=== PATIENT | female | born 1980 | race Caucasian/White ===

== ENCOUNTER → 2020-01-02 14:43 | Outpatient (BNVA) | payer OTHER, SELFPAY | PROVIDERS: Family Provider Family Medicine; PCP Family Medicine; Visit Provider Emergency Medicine | DX: N39.0 Urinary tract infection, site not specified (principal); R31.9 Hematuria, unspecified | CPT/HCPCS: 81000 ==

== ENCOUNTER → 2020-05-27 16:35 | Outpatient (BNVA) | payer OTHER, SELFPAY | PROVIDERS: Family Provider Family Medicine; PCP Family Medicine; Visit Provider Emergency Medicine | DX: Z03.818 Encounter for observation for suspected exposure to other biological agents ruled out (principal) | CPT/HCPCS: 87635 ==

== ENCOUNTER → 2021-11-22 09:32 | Outpatient (BNVA) | payer OTHER, SELFPAY | PROVIDERS: Family Provider Family Medicine; PCP Nurse Practitioner Family; Visit Provider Emergency Medicine | DX: J02.9 Acute pharyngitis, unspecified (principal); J01.00 Acute maxillary sinusitis, unspecified | CPT/HCPCS: 87071; 87880 ==

== ENCOUNTER → 2021-12-26 17:15 | Outpatient (BNVA) | payer OTHER, SELFPAY | PROVIDERS: Family Provider Family Medicine; PCP Nurse Practitioner Family; Visit Provider Nurse Practitioner Family | DX: M54.16 Radiculopathy, lumbar region (principal); M51.26 Other intervertebral disc displacement, lumbar region | CPT/HCPCS: 72100 ==

== ENCOUNTER → 2022-01-24 16:30 | Outpatient (BNVA) | payer OTHER, MEDICAID, SELFPAY | PROVIDERS: Family Provider Family Medicine; PCP Nurse Practitioner Family; Visit Provider Emergency Medicine | DX: Z87.891 Personal history of nicotine dependence (principal); E66.9 Obesity, unspecified; I10 Essential (primary) hypertension | CPT/HCPCS: 80053; 80061; 83880; 84443; 85025 ==

== ENCOUNTER 2022-03-30 11:49 | Outpatient (CLI) | payer OTHER, MEDICAID, SELFPAY ==
--- NOTE | 2022-03-30 11:45 | MR_ITS ---
WS: [id number] MRI LUMBAR SPINE NONCONTRAST TECHNIQUE: Sagittal T1, T2 and STIR imaging. Axial T1 and T2 imaging. CLINICAL INFORMATION: M48.062 - Spinal stenosis, lumbar region with neurogenic ... COMPARISON: Outside MRI March 03, 2020 FINDINGS: Mild lumbar curve. No acute compression. No high-grade central canal stenosis. Mild disc bulging wors e at T11-T12, L4-L5, L5-S1 similar to previous. L1-L2: Normal. L2-L3: Tiny RIGHT proximal foraminal protrusion slightly encroaches on the exiting L2 nerve root. Spi nal canal and foramen are patent. L3-L4: No significant disc bulging. Spinal canal and foramen are patent. Mild facet arthropathy. L4-L5: Mild annular bulging with slight effacement of ventral thecal sac. Slight narrowing of the sub articular recess bilaterally. Mild facet arthropathy. Spinal canal and foramen are patent. L5-S1: Shallow central disc protrusion slightly impinges the traversing S1 nerve roots bilaterally. M ild facet arthropathy. Spinal canal and foramen are patent. Shallow central protrusion T11-T12 with slight effacement of ventral thecal sac and unchanged. This i s only covered on the axial imaging. Visualized pelvic bony structures: Normal. Paravertebral soft tissues: Normal. MR/MR lumbar spine wo con* [id number] IMPRESSION: 1. Mild lumbar curve. No acute compression. No high-grade central canal stenos is. 2. Shallow central protrusion L5-S1 with slight impingement traversing S1 nerv e roots bilaterally unchanged from previous. 3. Mild annular bulging L4-L5 slightly encroaches on the traversing L5 nerve r oots bilaterally in the subarticular recess. 4. Shallow central protrusion T11-T12 with slight effacement of ventral thecal sac unchanged. 5. Tiny RIGHT proximal foraminal protrusion slightly encroaches on the exiting RIGHT L2 nerve root. 6. Mild facet arthropathy more prominent at L4-L5. 7. Overall no significant changes compared to previous.
== END 2022-03-30 11:50 | disposition home or self-care (01) ==
LOC: RAD 11:57
PROVIDERS: PCP Family Medicine; Visit Provider Anesthesiology Pain Medicine
DX: M48.062 Spinal stenosis, lumbar region with neurogenic claudication (principal)
CPT/HCPCS: 72148

== ENCOUNTER → 2022-05-24 14:43 | Outpatient (BNVA) | payer OTHER, MEDICAID, SELFPAY | PROVIDERS: PCP Family Medicine; Visit Provider Family Medicine | DX: N95.1 Menopausal and female climacteric states (principal); N92.6 Irregular menstruation, unspecified; I10 Essential (primary) hypertension | CPT/HCPCS: 81025; 83001; 83002 ==

== ENCOUNTER → 2022-07-12 15:34 | Outpatient (BNVA) | payer OTHER, MEDICAID, SELFPAY | PROVIDERS: PCP Family Medicine; Visit Provider Emergency Medicine | DX: M25.572 Pain in left ankle and joints of left foot (principal); M79.672 Pain in left foot | CPT/HCPCS: 73610; 73620 ==

== ENCOUNTER → 2022-08-18 13:34 | Outpatient (BNVA) | payer OTHER, MEDICAID, SELFPAY | PROVIDERS: PCP Family Medicine; Visit Provider Emergency Medicine | DX: R68.89 Other general symptoms and signs (principal) | CPT/HCPCS: 87400 ==

== ENCOUNTER → 2022-10-29 11:13 | Outpatient (BNVA) | payer OTHER, MEDICAID, SELFPAY | PROVIDERS: PCP Family Medicine; Visit Provider Family Medicine | DX: R73.9 Hyperglycemia, unspecified (principal); R53.83 Other fatigue; Z13.1 Encounter for screening for diabetes mellitus | CPT/HCPCS: 80053; 83036; 85025 ==

== ENCOUNTER → 2023-04-25 14:24 | Outpatient (BNVA) | payer OTHER, MEDICAID, SELFPAY | PROVIDERS: PCP Family Medicine; Visit Provider Emergency Medicine | DX: M25.561 Pain in right knee (principal) | CPT/HCPCS: 73562 ==

== ENCOUNTER → 2023-06-18 14:21 | Outpatient (BNVA) | payer OTHER, MEDICAID, SELFPAY | PROVIDERS: PCP Family Medicine; Visit Provider Nurse Practitioner Family | DX: Z20.822 Contact with and (suspected) exposure to COVID-19 (principal); R68.89 Other general symptoms and signs; U07.1 COVID-19 | CPT/HCPCS: 87400; 87426 ==

== ENCOUNTER → 2023-06-20 11:00 | Outpatient (BNVA) | payer OTHER, MEDICAID, SELFPAY | PROVIDERS: PCP Family Medicine; Visit Provider Nurse Practitioner Family | DX: Z20.822 Contact with and (suspected) exposure to COVID-19 (principal); J06.9 Acute upper respiratory infection, unspecified | CPT/HCPCS: 87426 ==

== ENCOUNTER → 2023-07-11 12:36 | Outpatient (BNVA) | payer OTHER, MEDICAID, SELFPAY | PROVIDERS: PCP Family Medicine; Visit Provider Family Medicine | DX: E11.9 Type 2 diabetes mellitus without complications (principal); I10 Essential (primary) hypertension; F32.A Depression, unspecified; F41.9 Anxiety disorder, unspecified; F41.0 Panic disorder [episodic paroxysmal anxiety]; F33.1 Major depressive disorder, recurrent, moderate | CPT/HCPCS: 80053; 80061; 83036 ==

== ENCOUNTER 2023-07-22 06:00 | Outpatient (RCR) | payer OTHER, MEDICAID, SELFPAY | END 2023-07-30 23:59 | disposition home or self-care (01) | LOC: MPT 06:00 | PROVIDERS: PCP Family Medicine; Visit Provider Emergency Medicine | DX: Z98.890 Other specified postprocedural states (principal); M25.561 Pain in right knee; M23.305 Other meniscus derangements, unspecified medial meniscus, unspecified knee | CPT/HCPCS: 97161 ==

== ENCOUNTER 2023-07-31 06:00 | Outpatient (RCR) | payer OTHER, MEDICAID, SELFPAY | END 2023-08-29 23:59 | disposition home or self-care (01) | LOC: MPT 06:00 | PROVIDERS: PCP Family Medicine; Visit Provider Emergency Medicine | DX: M25.561 Pain in right knee (principal) | CPT/HCPCS: 97110; G0283 ==

== ENCOUNTER → 2023-09-22 13:05 | Outpatient (BNVA) | payer OTHER, MEDICAID, SELFPAY | PROVIDERS: PCP Family Medicine; Visit Provider Nurse Practitioner Family | DX: S93.402A Sprain of unspecified ligament of left ankle, initial encounter (principal); X58.XXXA Exposure to other specified factors, initial encounter | CPT/HCPCS: 73610 ==

== ENCOUNTER → 2023-09-24 10:52 | Outpatient (BNVA) | payer OTHER, MEDICAID, SELFPAY | PROVIDERS: PCP Family Medicine; Visit Provider Nurse Practitioner Family | DX: J02.9 Acute pharyngitis, unspecified (principal); J02.0 Streptococcal pharyngitis; H66.002 Acute suppurative otitis media without spontaneous rupture of ear drum, left ear | CPT/HCPCS: 87880 ==

== ENCOUNTER 2023-09-30 06:00 | Outpatient (RCR) | payer OTHER, MEDICAID, SELFPAY | END 2023-10-30 23:59 | disposition home or self-care (01) | LOC: MPT 06:00 | PROVIDERS: PCP Family Medicine; Visit Provider Emergency Medicine | DX: M25.561 Pain in right knee (principal) | CPT/HCPCS: 97110 ==

== ENCOUNTER → 2024-01-27 15:25 | Outpatient (BNVA) | payer OTHER, MEDICAID, SELFPAY | PROVIDERS: PCP Family Medicine; Visit Provider Family Medicine | DX: E11.9 Type 2 diabetes mellitus without complications (principal) | CPT/HCPCS: 80048; 83036 ==

== ENCOUNTER → 2024-02-18 10:37 | Outpatient (BNVA) | payer OTHER, MEDICAID, SELFPAY | PROVIDERS: PCP Family Medicine; Visit Provider Family Medicine | DX: N39.0 Urinary tract infection, site not specified (principal) | CPT/HCPCS: 81000; 87086 ==

== ENCOUNTER → 2024-08-06 09:38 | Outpatient (BNVA) | payer OTHER, MEDICAID, SELFPAY | PROVIDERS: PCP Family Medicine; Visit Provider Obstetrics & Gynecology | DX: R10.2 Pelvic and perineal pain (principal); E11.9 Type 2 diabetes mellitus without complications | CPT/HCPCS: 80053; 80061; 83036; 87491; 87591; 87624 ==

== ENCOUNTER → 2024-08-25 07:53 | Outpatient (BNVA) | payer OTHER, MEDICAID, SELFPAY | PROVIDERS: PCP Family Medicine; Visit Provider Obstetrics & Gynecology | DX: R10.2 Pelvic and perineal pain (principal); G89.29 Other chronic pain | CPT/HCPCS: 76830 ==

== ENCOUNTER 2024-09-03 13:15 | Outpatient (CLI) | payer OTHER, MEDICAID, SELFPAY ==
--- NOTE | 2024-09-03 13:20 | MM_ITS ---
WS: [id number] BILATERAL SCREENING DIGITAL TOMOSYNTHESIS MAMMOGRAM WITH CAD HISTORY: Z12.31 - Encounter for screening mammogram for malignant ... COMPARISON: None available. Bilateral CC and MLO views with tomosynthesis and synthetic mammography submitted. Computer aided det ection analyzed. Breast composition: The breasts are almost entirely fatty. No suspicious masses, microcalcifications or architectural distortion. There are a few scattered benign calcifications. No mass. MM/MM [facility] tomosynthesis [id number] IMPRESSION: BI-RADS: 2 - Benign. FOLLOW UP: 1 Year Follow-up
== END 2024-09-03 13:16 | disposition home or self-care (01) ==
LOC: MOBLMAM 13:16
PROVIDERS: PCP Obstetrics & Gynecology; Visit Provider Obstetrics & Gynecology
DX: Z12.31 Encounter for screening mammogram for malignant neoplasm of breast (principal); R92.313 Mammographic fatty tissue density, bilateral breasts; R92.1 Mammographic calcification found on diagnostic imaging of breast
CPT/HCPCS: 77063; 77067

== ENCOUNTER → 2024-12-17 11:49 | Outpatient (BNVA) | payer OTHER, MEDICAID, SELFPAY | PROVIDERS: PCP Family Medicine; Visit Provider Family Medicine | DX: M77.8 Other enthesopathies, not elsewhere classified (principal); E11.9 Type 2 diabetes mellitus without complications | CPT/HCPCS: 73030; 80053; 83036 ==

== ENCOUNTER → 2025-02-05 11:51 | Outpatient (BNVA) | payer OTHER, MEDICAID, SELFPAY | PROVIDERS: PCP Family Medicine; Visit Provider Nurse Practitioner | DX: N39.0 Urinary tract infection, site not specified (principal) | CPT/HCPCS: 87086 ==

== ENCOUNTER → 2025-03-18 16:27 | Outpatient (BNVA) | payer OTHER, MEDICAID, SELFPAY | PROVIDERS: PCP Family Medicine; Visit Provider Nurse Practitioner | DX: N39.0 Urinary tract infection, site not specified (principal) | CPT/HCPCS: 81000; 87086 ==

== ENCOUNTER → 2025-04-06 16:52 | Outpatient (BNVA) | payer OTHER, MEDICAID, SELFPAY | PROVIDERS: PCP Family Medicine; Visit Provider Family Medicine | DX: N39.0 Urinary tract infection, site not specified (principal) | CPT/HCPCS: 81000 ==

== ENCOUNTER → 2025-04-14 12:06 | Outpatient (BNVA) | payer OTHER, MEDICAID, SELFPAY | PROVIDERS: PCP Family Medicine; Visit Provider Nurse Practitioner | DX: N39.0 Urinary tract infection, site not specified (principal) | CPT/HCPCS: 81000; 87086 ==

== ENCOUNTER → 2025-07-16 10:53 | Outpatient (BNVA) | payer OTHER, MEDICAID, SELFPAY | PROVIDERS: PCP Family Medicine; Visit Provider Nurse Practitioner | DX: S96.912A Strain of unspecified muscle and tendon at ankle and foot level, left foot, initial encounter (principal); X58.XXXA Exposure to other specified factors, initial encounter; Z98.890 Other specified postprocedural states; M19.072 Primary osteoarthritis, left ankle and foot | CPT/HCPCS: 73630 ==

== ENCOUNTER → 2025-07-30 14:26 | Outpatient (BNVA) | payer OTHER, MEDICAID, SELFPAY | PROVIDERS: PCP Family Medicine; Visit Provider Nurse Practitioner | DX: M54.50 Low back pain, unspecified (principal) | CPT/HCPCS: 81000 ==

== ENCOUNTER → 2025-08-24 11:49 | Outpatient (BNVA) | payer OTHER, MEDICAID, SELFPAY | PROVIDERS: PCP Family Medicine; Visit Provider Family Medicine | DX: E11.9 Type 2 diabetes mellitus without complications (principal); Z13.6 Encounter for screening for cardiovascular disorders; I10 Essential (primary) hypertension | CPT/HCPCS: 80048; 80061; 83036 ==

== ENCOUNTER → 2025-09-27 14:53 | Outpatient (BNVA) | payer OTHER, MEDICAID, SELFPAY | PROVIDERS: PCP Family Medicine; Visit Provider Family Medicine | DX: M25.542 Pain in joints of left hand (principal); M25.541 Pain in joints of right hand | CPT/HCPCS: 85651; 86038; 86140; 86431 ==